=== PATIENT | male | born 1995 | race African-American/Black ===

== ENCOUNTER 2017-11-19 21:17 | Emergency (ER) | payer SELFPAY ==
[2017-11-19] MEDS ORDERED: Penicillin G Benzathine 1,200,000 Units/2 ML Syringe IM ONE (22:27)
[2017-11-19] MEDS ORDERED: Ketorolac 60 MG/2 ML SDV IM ONE (22:27)
[2017-11-19] MEDS ORDERED: Ibuprofen Susp 100 MG/5 ML 5 ML UD Cup PO ONE (22:30)
--- NOTE | 2017-11-19 22:32 | EDM.PDOC ---
ED HPI GENERAL MEDICAL PROBLEM - General Chief Complaint: Fever Stated Complaint: CHILLS SORE THROAT Time Seen by Provider: 11/19/17 22:20 Source of Information: Reports: Patient History Limitations: Reports: No Limitations - History of Present Illness INITIAL COMMENTS - FREE TEXT/NARRATIVE: 22-year-old male presents for evaluation and treatment of a sore throat, fevers and chills. Reports symptoms started yesterday. He states that he cannot eat but is been taking some liquids. He has not taken any Tylenol or Motrin but did take some vitamin D. Current symptoms include fevers, chills, malaise, sore throat, lateral neck discomfort, headaches, nausea and abdominal discomfort. No ear pain or vomiting. Patient denies any ill contacts. Throat Pain Score (Numeric/FACES): 8 - Related Data Allergies Allergy/AdvReac Type Severity Reaction Status Date / Time No Known Allergies Allergy Verified 11/19/17 21:45 Home Meds: Home Meds . [No Known Home Meds] 11/19/17 [History] Past Medical History - Past Health History Medical/Surgical History: Denies Medical/Surgical History Social & Family History - Tobacco Use Smoking Status *Q: Never Smoker - Caffeine Use Caffeine Use: Reports: None - Recreational Drug Use Recreational Drug Use: No ED ROS ENT - Review of Systems Review Of Systems: See Below Constitutional: Reports: Fever, Chills, Malaise HEENT: Reports: Throat Pain. Denies: Ear Pain Respiratory: Denies: Cough GI/Abdominal: Reports: Abdominal Pain, Nausea. Denies: Vomiting Musculoskeletal: Reports: Neck Pain Neurological: Reports: Headache ED EXAM, ENT - Physical Exam Exam: See Below Exam Limited By: No Limitations General Appearance: Alert, WD/WN, Mild Distress Eye Exam: Bilateral Eye: Normal Inspection Ears: Normal External Exam, Normal Canal, Hearing Grossly Normal, Normal TMs Nose: Normal Inspection Mouth/Throat: Normal Inspection, Normal Gums, Normal Lips, Pharyngeal Erythema, Tonsillar Erythema. No: Tonsillar Exudates, Tonsillar Swelling Neck: Normal Inspection, Supple, Lymphadenopathy (L), Lymphadenopathy (R) Respiratory/Chest: No Respiratory Distress, Lungs Clear, Normal Breath Sounds Cardiovascular: Normal Peripheral Pulses, Regular Rate, Rhythm, No Murmur GI/Abdominal: Soft, Non-Tender Neurological: Alert, Oriented, Normal Cognition Psychiatric: Normal Affect, Normal Mood Skin: Warm, Dry, Normal Color Course - Vital Signs Last Recorded V/S: Last Vital Signs Temp 100.5 F 11/19/17 21:40 Pulse 90 11/19/17 21:40 Resp 20 11/19/17 21:40 BP 149/87 H 11/19/17 21:40 Pulse Ox 100 11/19/17 21:40 - Orders/Labs/Meds Meds: Medications Discontinued Medications Generic Name Dose Route Start Last Admin Trade Name Ally PRFreda Reason Stop Dose Admin Ibuprofen 600 mg 11/19/17 22:30 11/19/17 22:55 Motrin 100 Mg/5 Ml Susp PO 11/19/17 22:31 600 mg ONETIME ONE Administration Ketorolac Tromethamine 60 mg 11/19/17 22:27 11/19/17 22:57 Toradol IM 11/19/17 22:28 Not Given ONETIME ONE Penicillin G Benzathine 1.2 millunits 11/19/17 22:27 11/19/17 22:56 Bicillin L-A IM 11/19/17 22:28 1.2 millunits ONETIME ONE Administration - Re-Assessments/Exams Free Text/Narrative Re-Assessment/Exam: 11/19/17 22:30 Rapid strep returned positive. Gave the patient the option of taking amoxicillin versus a Bicillin shot in the ED. He elects to take the Bicillin shot. I will also give him some liquid ibuprofen. Encouraged to use ibuprofen and Tylenol. Drink plenty of liquids. Educated him that he is contagious until he is 24 hours of antibiotic in him. Discharge instructions as documented. Departure - Departure Time of Disposition: 22:31 Disposition: Home, Self-Care 01 Condition: Fair Clinical Impression: Strep pharyngitis - Discharge Information Instructions: Strep Throat, [id number] Referrals: PCP,None [Primary Care Provider] - Forms: ED Department Discharge Additional Instructions: Your contagious until you have 24 hours of antibiotic in you. Strep spread by saliva. Wash any cups laying around, boil or get a new toothbrushes, etc. note give for work. Clear fluids and soft foods as tolerated. [id number] Tylenol or motrin as needed for fever and discomfort relief. follow-up with family medicine if you're not much improved within 2 weeks. Please return to the ER if your symptoms change or worsen.
== END 2017-11-19 22:50 | disposition home or self-care (01) ==
LOC: JD.ED 21:17
DX: J02.0 Streptococcal pharyngitis (principal)
CPT/HCPCS: 87430; 96372; 99283; A9270; J0561